=== PATIENT | male | born 1975 | race Caucasian/White ===

== ENCOUNTER 2021-06-22 14:21 | Emergency (ER) | payer MEDICAID ==
[2021-06-22 14:28] VITALS: BP 126/106
--- NOTE | 2021-06-22 14:55 | ED Physician Documentation ---
PD HPI WOUND RECHECK - Stated complaint Stated Complaint: WOUND RE PACKED - Chief complaint Chief Complaint: Wound - Histroy obtained from History obtained from: Patient - Additional information Additional information: Had excision of pilonidal cyst 11 days ago and needs repacked. No other acute acute complaints. Review of Systems Constitutional: denies: Fever, Chills Ears: reports: Reviewed and negative Nose: reports: Reviewed and negative PD PAST MEDICAL HISTORY - Allergies Allergies/Adverse Reactions: Allergies Allergy/AdvReac Type Severity Reaction Status Date / Time lactose Allergy Nausea Verified 06/22/21 14:25 - Social History Does the pt smoke?: No Smoking Status: Never smoker PD ED PE NORMAL - Vitals Vital signs reviewed: Yes - General General: Alert and oriented X 3, No acute distress - Derm Derm: Other (There is a open defect on the right side of the top of the gluteal crease without signs of infection that was repacked with a 2 x 2 on exam.) - Neuro Neuro: Alert and oriented X 3, Normal speech Results - Vitals Vitals: Vital Signs - 24 hr 06/22/21 14:26 Temperature 37.0 C Heart Rate 78 Respiratory 18 Rate Blood Pressure 126/106 H O2 Saturation 99 Oxygen O2 Source Room air Departure - Departure Disposition: 01 Home, Self Care Clinical Impression: Pilonidal cyst Condition: Good Record reviewed to determine appropriate education?: Yes Instructions: Pilonidal Cyst
== END 2021-06-22 15:08 | disposition home or self-care (01) ==
LOC: ED 14:21
DX: L05.91 Pilonidal cyst without abscess (principal); Z48.01 Encounter for change or removal of surgical wound dressing
CPT/HCPCS: 99281; 99283

== ENCOUNTER 2021-06-23 17:27 | Emergency (ER) | payer MEDICAID ==
[2021-06-23 17:33] VITALS: BP 110/73
--- NOTE | 2021-06-23 17:51 | ED Physician Documentation ---
History of Present Illness - Stated complaint Stated Complaint: WOUND CHECK - Chief complaint Chief Complaint: General - History obtained from History obtained from: Patient - Additonal information Additional information: Returns as yesterday because he cannot repack his pilonidal cyst. No other acute complaints. Some drainage but no fevers or chills. Review of Systems Constitutional: reports: Reviewed and negative Eyes: reports: Reviewed and negative Ears: reports: Reviewed and negative PD PAST MEDICAL HISTORY - Allergies Allergies/Adverse Reactions: Allergies Allergy/AdvReac Type Severity Reaction Status Date / Time lactose Allergy Nausea Verified 06/23/21 17:33 - Social History Does the pt smoke?: No Smoking Status: Never smoker PD ED PE NORMAL - Vitals Vital signs reviewed: Yes - General General: Alert and oriented X 3, No acute distress - Rectal Rectal: Other (The defect in the pilonidal area is smaller than it was yesterday, about 1 cm round. It was repacked with a 2 x 2 without issue. No signs of active infection.) - Derm Derm: Normal color, Warm and dry Results - Vitals Vitals: Vital Signs - 24 hr 06/23/21 17:30 Temperature 36.9 C Heart Rate 90 Respiratory 14 Rate Blood Pressure 110/73 O2 Saturation 100 Oxygen O2 Source Room air Departure - Departure Disposition: Home, Self Care Clinical Impression: Pilonidal cyst Condition: Good Record reviewed to determine appropriate education?: Yes Instructions: ED Cyst Pilonidal Infected IandD
== END 2021-06-23 17:53 | disposition home or self-care (01) ==
LOC: ED 17:27
DX: Z48.01 Encounter for change or removal of surgical wound dressing (principal); L05.91 Pilonidal cyst without abscess
CPT/HCPCS: 99281; 99283